=== PATIENT | female | born 1965 | race Caucasian/White ===

== ENCOUNTER 2020-03-09 13:57 | Outpatient (CLI) | payer MEDICARE ==
[2020-03-09 14:59] LABS: THYROID STIMULATING HORMONE 1.99 uIU/mL (0.34-5.60)
[2020-03-09 15:01] LABS: FREE T3 3.09 pg/mL (2.5-3.9); FREE T4 (FREE THYROXINE) 0.66 ng/dL (0.58-1.64)
== END 2020-03-09 13:58 | disposition home or self-care (01) ==
LOC: LAB 13:57
PROVIDERS: ATTEND Family Medicine
DX: E03.9 Hypothyroidism, unspecified (principal)
CPT/HCPCS: 36415; 84439; 84443; 84481